=== PATIENT | male | born 1975 | race Two or more races ===

== ENCOUNTER 2023-01-04 05:50 | Day surgery (SDC) | payer OTHER ==
[~2023-01-04] VITALS: Ht 172.7 cm; Wt 74.8 kg
[~2023-01-04 05:50] MED LIST: EXFORGE 10-1601 EACH PO; LIPITOR20 MG PO; LOVASA
[2023-01-04] MEDS ORDERED: POLY119PG PO (09:13)
[2023-01-04] MEDS ORDERED: PERCOCET 5-3251 EACH PO (09:13)
[2023-01-04] MEDS ORDERED: NEURONTIN300 MG PO (09:13)
== END 2023-01-04 11:35 | disposition home or self-care (01) ==
LOC: CIR.AMB 05:50
PROVIDERS: ATTEND Surgery
DX: K40.91 Unilateral inguinal hernia, without obstruction or gangrene, recurrent (principal); Z20.822 Contact with and (suspected) exposure to COVID-19
CPT/HCPCS: 49651; C1781

== ENCOUNTER 2024-04-09 09:53 | Emergency (ER) | payer OTHER ==
[~2024-04-09] VITALS: Ht 172.7 cm; Wt 74.8 kg
[~2024-04-09 09:53] MED LIST changes: +NEURONTIN300 MG PO; +PERCOCET 5-3251 EACH PO; +POLY119PG PO
[2024-04-09 12:04] LABS: HEMATOCRIT 42.5 % (39.0-48.0); HEMOGLOBIN 14.5 g/dL (13-16.00); MEAN CELL VOLUME 84.2 fL (80.0-100.00); MEAN CORPUSCULAR HEMOGLOBIN 28.7 pg (27.00-32.0); PLATELET COUNT 225 K/uL (150-450); RED BLOOD COUNT 5.05 M/uL (4.00-6.00)
[2024-04-09 12:05] LABS: PH,URINE 6.5 (5.0-8.0); URINE APPEARANCE Clear; URINE BILIRRUBIN Negative (NEGATIVE); URINE BLOOD Negative; URINE COLOR Yellow; URINE GLUCOSE Negative (NEGATIVE); URINE KETONE Negative (NEGATIVE); URINE LEUKOCYTE Negative; URINE NITRATE Negative; URINE PROTEIN Negative (NEGATIVE); URINE UROBILINOGEN 0.2 E.U./dl
[2024-04-09 12:17] LABS: URINE BACTERIA 2.5 uL (0.0-1933); URINE EPITHELIAL CELLS 0.4 uL (0.0-38.8); URINE RBC 1.2 uL (0.0-20.8)
[2024-04-09 13:09] LABS: CALCIUM 9.1 mg/dL (8.5-10.1); CREATININE SERUM 1.1 mg/dL (0.70-1.30); GFR 71.75; POTASSIUM 4.38 mEq/L (3.5-5.1)
== END 2024-04-09 14:07 | disposition home or self-care (01) ==
LOC: ER 09:54
PROVIDERS: General Practice
DX: R42 Dizziness and giddiness (principal); I10 Essential (primary) hypertension; E78.00 Pure hypercholesterolemia, unspecified; A90 Dengue fever [classical dengue]